=== PATIENT | female | born 1970 | race Asian ===

== ENCOUNTER 2023-07-07 12:34 | Inpatient (IN) | payer MEDICAID, OTHER ==
[~2023-07-07] VITALS: Ht 157.5 cm; Wt 61.7 kg
[2023-07-07 13:15] LABS: BASOPHILS % (AUTO) 1.8 % (0.0-2.0); EOSINOPHILS % (AUTO) 2.1 % (1.0-6.0); HEMATOCRIT 38.7 % (36-46); HEMOGLOBIN 13.4 g/dL (12.0-16.0); LYMPHOCYTES # (AUTO) 2.5 K/uL (1.0-4.8); LYMPHOCYTES % (AUTO) 59.4 % (22.0-44.0); MEAN CORPUSCULAR HEMOGLOBIN 36.5 pg (26.0-34.0); MEAN CORPUSCULAR HGB CONC 34.7 G/dL (31.0-37.0); MEAN CORPUSCULAR VOLUME 105 fL (80-100); MONOCYTES # (AUTO) 0.3 K/uL (0.1-1.0); NEUTROPHILS # (AUTO) 1.2 K/uL (1.8-7.7); NEUTROPHILS % (AUTO) 29.7 % (40.0-70.0); PLATELET COUNT (AUTO) 255 K/uL (150-450); RED BLOOD CELL COUNT(AUTO) 3.68 MIL/uL (4.00-5.20); RED CELL DISTRIBUTION WIDTH 17.1 % (11.5-14.5); WHITE BLOOD COUNT (AUTO) 4.2 K/uL (4.5-11.0)
[2023-07-07 13:25] LABS: ANION GAP 9 mmol/L (8-16); CALCIUM, TOTAL 7.8 mg/dL (8.8-10.5); CARBON DIOXIDE 25 mmol/L (22-29); CHLORIDE 106 mmol/L (98-107); CREATININE 0.59 mg/dL (0.60-1.30); GLOMERULAR FILTR. RATE CALC > 60 mL/min (>60); GLUCOSE,RANDOM 121 mg/dL (70-110); POTASSIUM 3.2 mmol/L (3.5-5.1); SODIUM SERUM 140 mmol/L (136-145); UREA NITROGEN, BLOOD 7 mg/dL (7-18)
[2023-07-07 13:31] LABS: ALANINE AMINOTRANSFERASE 40 U/L (12-78); ALBUMIN 3.8 g/dL (3.4-5.0); ALCOHOL, BLOOD (SERUM) 270 mg/dL (0-10); ALKALINE PHOSPHATASE 78 U/L (46-116); ASPARTATE AMINOTRANSFERASE 60 U/L (15-37); BILIRUBIN,TOTAL 0.4 mg/dL (0.1-1.0); TOTAL PROTEIN, SERUM 7.5 g/dL (6.4-8.2)
[2023-07-07 13:51] LABS: RBC MORPHOLOGY COMMENT ABNORMAL RBC MORPH
[2023-07-07] MEDS ORDERED: ZOLPIDEM TARTRATE 10 MG TABLET PO PRN (14:15)
[2023-07-07] MEDS ORDERED: POTASSIUM CHLORIDE 20 MEQ ER TABLET PO ONE (14:15)
[2023-07-07] MEDS ORDERED: HALOPERIDOL 5 MG TABLET PO PRN (14:15)
[2023-07-07] MEDS ORDERED: LORazepam 2 MG TABLET PO PRN (14:15)
[2023-07-07 14:48] LABS: COVID AG,FIA SOURCE NASAL SWAB
[2023-07-07 14:52] LABS: PH,URINE DRUG SCREEN 5.5 (5.0-8.0)
[2023-07-07 14:59] LABS: AMPHET/METH SCREEN,URINE POSITIVE (NEGATIVE); BARBITURATE SCREEN, URINE NEGATIVE (NEGATIVE); BENZODIAZEPINES SCREEN,URINE NEGATIVE (NEGATIVE); CANNABINOID SCREEN,URINE NEGATIVE (NEGATIVE); COCAINE SCREEN,URINE NEGATIVE (NEGATIVE); METHADONE SCREEN, URINE NEGATIVE (NEGATIVE); OPIATE SCREEN,URINE NEGATIVE (NEGATIVE); PHENCYCLIDINE SCREEN,URINE NEGATIVE (NEGATIVE)
[2023-07-07 15:04] LABS: ALCOHOL, URINE DRUG SCREEN NEGATIVE (NEGATIVE)
[2023-07-07 15:07] LABS: SARS-COV2 (COVID) ANTIGEN,FIA Negative (Negative)
[2023-07-08 00:52] VITALS: BP 144/84; PULSE 87; RESP 18; TEMP 97.8
[2023-07-08] MEDS ORDERED: INFLUENZA VIRUS VACCINE QVS 2023-24 (6MO+)/PF 60 MCG/0.5 ML SYRINGE IM. ONE (02:15)
[2023-07-08] MEDS ORDERED: PETROLATUM,WHITE 28 GM JELLY TP PRN (05:15)
[2023-07-08] MEDS ORDERED: ONDANSETRON HCL 4 MG TABLET PO PRN (05:15)
[2023-07-08] MEDS ORDERED: MAGNESIUM HYDROXIDE SUSPENSION 30 ML UDCUP PO PRN (05:15)
[2023-07-08] MEDS ORDERED: OMEPRAZOLE 20 MG CAPSULE PO PRN (05:15)
[2023-07-08] MEDS ORDERED: BACITRACIN 28 GM OINTMENT TP PRN (05:15)
[2023-07-08] MEDS ORDERED: ACETAMINOPHEN 325 MG TABLET PO PRN (05:15)
[2023-07-08] MEDS ORDERED: DOCUSATE SODIUM 100 MG CAPSULE PO PRN (05:15)
[2023-07-08] MEDS ORDERED: BENZOCAINE/MENTHOL LOZENGE PO PRN (05:15)
[2023-07-08] MEDS ORDERED: CloNIDine HCL 0.1 MG TABLET PO PRN (05:15)
[2023-07-08] MEDS ORDERED: ALBUTEROL SULFATE HFA 90 MCG/PUFF 8 GM INHALER IH PRN (05:15)
[2023-07-08] MEDS ORDERED: LOPERAMIDE HCL 2 MG CAPSULE PO PRN (05:15)
[2023-07-08] MEDS ORDERED: MAG HYDROX/ALUMINUM HYD/SIMETH ES 30 ML SUSPENSION UDCUP PO PRN (05:15)
[2023-07-08] MEDS ORDERED: NICOTINE 21 MG/24 HOUR PATCH TD PRN (06:15)
[2023-07-08 07:40] LABS: ANION GAP 8 mmol/L (8-16); CALCIUM, TOTAL 7.9 mg/dL (8.8-10.5); CARBON DIOXIDE 25 mmol/L (22-29); CHLORIDE 106 mmol/L (98-107); CREATININE 0.53 mg/dL (0.60-1.30); GLOMERULAR FILTR. RATE CALC > 60 mL/min (>60); GLUCOSE,RANDOM 97 mg/dL (70-110); POTASSIUM 3.4 mmol/L (3.5-5.1); SODIUM SERUM 139 mmol/L (136-145); UREA NITROGEN, BLOOD 8 mg/dL (7-18)
[2023-07-08 08:51] LABS: APPEARANCE,URINE CLEAR (CLEAR); BILIRUBIN,URINE NEGATIVE (NEGATIVE); COLOR,URINE LIGHT YELLOW (YELLOW); GLUCOSE, URINE (UA) NEGATIVE (NEGATIVE); KETONES,URINE NEGATIVE (NEGATIVE); LEUKOCYTE ESTERASE ,URINE NEGATIVE (NEGATIVE); NITRATE,URINE NEGATIVE (NEGATIVE); OCCULT BLOOD,URINE NEGATIVE (NEGATIVE); PROTEIN,URINE NEGATIVE (NEGATIVE); SPECIFIC GRAVITIY, URINE 1.021 (1.003-1.030); UROBILINOGEN,URINE <=1.0 mg/dL (<=1.0)
[2023-07-08 10:13] VITALS: BP 147/85; PULSE 66; RESP 18; TEMP 97
[2023-07-08 22:19] VITALS: RESP 18
[2023-07-09 08:53] VITALS: BP 139/83; PULSE 62; RESP 18; TEMP 96.3
[2023-07-09 11:19] VITALS: BP 139/83; PULSE 62; RESP 17; TEMP 96.2
[2023-07-09] MEDS: DIVALPROEX SODIUM 500 MG DR TABLET PO SCH ×2 (11:19→17:00)
[2023-07-09] MEDS: IBUPROFEN 600 MG TABLET PO PRN ×2 (11:19→17:58)
[2023-07-09 12:19] VITALS: BP 118/79; PULSE 76; RESP 17; TEMP 97.9
[2023-07-09 17:58] VITALS: BP 141/81; PULSE 68; RESP 17; TEMP 97.6
[2023-07-09 18:58] VITALS: BP 116/76; PULSE 82; RESP 17; TEMP 98
[2023-07-09 23:10] VITALS: BP 129/78; PULSE 69; RESP 18; TEMP 97.6
[2023-07-10 09:02] VITALS: BP 132/77; PULSE 63; RESP 18; TEMP 97.6
[2023-07-10] MEDS: DIVALPROEX SODIUM 500 MG DR TABLET PO SCH ×2 (09:03→16:29)
[2023-07-10 21:13] VITALS: RESP 18
[2023-07-11 08:00] VITALS: BP 122/68; PULSE 59; RESP 16; TEMP 98.6
[2023-07-11 08:50] VITALS: BP 125/72; PULSE 64; RESP 18
[2023-07-11 09:09] VITALS: BP 122/68; PULSE 59; RESP 18; TEMP 98.6
[2023-07-11 09:50] VITALS: RESP 18
[2023-07-11] MEDS: DIVALPROEX SODIUM 500 MG DR TABLET PO SCH ×2 (09:51→17:31)
[2023-07-11 21:12] VITALS: BP 109/65; PULSE 75; RESP 17; TEMP 98.1
[2023-07-11 21:19] VITALS: BP 109/75; PULSE 75; RESP 17; TEMP 98.1
[2023-07-12 09:37] VITALS: BP 129/73; PULSE 60; RESP 18; TEMP 97.4
[2023-07-12] MEDS: DIVALPROEX SODIUM 500 MG DR TABLET PO SCH (09:52)
[2023-07-12] MEDS ORDERED: DIVA-112 PO (13:03)
== END 2023-07-12 16:05 | disposition home or self-care (01) | DRG 754 ==
LOC: EMS 12:34 → ICUN 14:19 → 3EI 22:28
PROVIDERS: ADMIT Psychiatry & Neurology Psychiatry; ATTEND Psychiatry & Neurology Psychiatry
DX: F32.9 Major depressive disorder, single episode, unspecified (principal); R45.851 Suicidal ideations; F29 Unspecified psychosis not due to a substance or known physiological condition; K59.00 Constipation, unspecified; F41.9 Anxiety disorder, unspecified; G47.00 Insomnia, unspecified; F15.10 Other stimulant abuse, uncomplicated; F10.229 Alcohol dependence with intoxication, unspecified; Z20.822 Contact with and (suspected) exposure to COVID-19
CPT/HCPCS: 80048; 80053; 80307; 81003; 84703; 85025; 99285; G0480

== ENCOUNTER 2024-02-02 10:19 | Inpatient (IN) | payer MEDICAID, OTHER ==
[~2024-02-02] VITALS: Ht 160 cm; Wt 60.8 kg
[~2024-02-02 10:19] MED LIST: DIVA-112 PO
[2024-02-02 12:32] LABS: COVID AG,FIA SOURCE NASAL SWAB
[2024-02-02 12:52] LABS: SARS-COV2 (COVID) ANTIGEN,FIA Negative (Negative)
[2024-02-02 13:50] LABS: PH,URINE DRUG SCREEN 6.5 (5.0-8.0)
[2024-02-02 14:02] LABS: ALCOHOL, URINE DRUG SCREEN NEGATIVE (NEGATIVE); AMPHET/METH SCREEN,URINE POSITIVE (NEGATIVE); BARBITURATE SCREEN, URINE NEGATIVE (NEGATIVE); BENZODIAZEPINES SCREEN,URINE NEGATIVE (NEGATIVE); CANNABINOID SCREEN,URINE NEGATIVE (NEGATIVE); COCAINE SCREEN,URINE NEGATIVE (NEGATIVE); METHADONE SCREEN, URINE NEGATIVE (NEGATIVE); OPIATE SCREEN,URINE NEGATIVE (NEGATIVE); PHENCYCLIDINE SCREEN,URINE NEGATIVE (NEGATIVE)
[2024-02-02] MEDS ORDERED: HALOPERIDOL 5 MG TABLET PO PRN (14:30)
[2024-02-02] MEDS ORDERED: LORazepam 2 MG TABLET PO PRN (14:30)
[2024-02-02] MEDS ORDERED: ZOLPIDEM TARTRATE 10 MG TABLET PO PRN (14:30)
[2024-02-02] MEDS ORDERED: MAGNESIUM HYDROXIDE SUSPENSION 30 ML UDCUP PO PRN (17:15)
[2024-02-02] MEDS ORDERED: DOCUSATE SODIUM 100 MG CAPSULE PO PRN (17:15)
[2024-02-02] MEDS ORDERED: PETROLATUM,WHITE 28 GM JELLY TP PRN (17:15)
[2024-02-02] MEDS ORDERED: LOPERAMIDE HCL 2 MG CAPSULE PO PRN (17:15)
[2024-02-02] MEDS ORDERED: CloNIDine HCL 0.1 MG TABLET PO PRN (17:15)
[2024-02-02] MEDS ORDERED: OMEPRAZOLE 20 MG CAPSULE PO PRN (17:15)
[2024-02-02] MEDS ORDERED: ALBUTEROL SULFATE HFA 90 MCG/PUFF 8 GM INHALER IH PRN (17:15)
[2024-02-02] MEDS ORDERED: BACITRACIN 28 GM OINTMENT TP PRN (17:15)
[2024-02-02] MEDS ORDERED: ONDANSETRON HCL 4 MG TABLET PO PRN (17:15)
[2024-02-02] MEDS ORDERED: BENZOCAINE/MENTHOL LOZENGE PO PRN (17:15)
[2024-02-02] MEDS ORDERED: MAG HYDROX/ALUMINUM HYD/SIMETH ES 30 ML SUSPENSION UDCUP PO PRN (17:15)
[2024-02-02 17:57] VITALS: BP 134/76; PULSE 96; RESP 18; TEMP 98.4; O2SAT 95
[2024-02-02] MEDS: IBUPROFEN 600 MG TABLET PO PRN (20:03)
[2024-02-02 20:07] VITALS: RESP 17
[2024-02-02 21:03] VITALS: RESP 15
[2024-02-03] MEDS: ACETAMINOPHEN 325 MG TABLET PO PRN (00:52)
[2024-02-03 08:26] LABS: BASOPHILS % (AUTO) 0.6 % (0.0-2.0); EOSINOPHILS % (AUTO) 2.2 % (1.0-6.0); HEMATOCRIT 38.7 % (36-46); HEMOGLOBIN 12.9 g/dL (12.0-16.0); LYMPHOCYTES # (AUTO) 2.2 K/uL (1.0-4.8); LYMPHOCYTES % (AUTO) 22.7 % (22.0-44.0); MEAN CORPUSCULAR HEMOGLOBIN 30.3 pg (26.0-34.0); MEAN CORPUSCULAR HGB CONC 33.4 G/dL (31.0-37.0); MEAN CORPUSCULAR VOLUME 91 fL (80-100); MONOCYTES # (AUTO) 0.5 K/uL (0.1-1.0); MONOCYTES % (AUTO) 5.3 % (2.0-9.0); NEUTROPHILS # (AUTO) 6.8 K/uL (1.8-7.7); NEUTROPHILS % (AUTO) 69.2 % (40.0-70.0); PLATELET COUNT (AUTO) 253 K/uL (150-450); RED BLOOD CELL COUNT(AUTO) 4.27 MIL/uL (4.00-5.20); RED CELL DISTRIBUTION WIDTH 15.5 % (11.5-14.5); WHITE BLOOD COUNT (AUTO) 9.9 K/uL (4.5-11.0)
[2024-02-03 08:30] VITALS: BP 134/69; PULSE 74; RESP 17; TEMP 97.7; O2SAT 98
[2024-02-03 09:02] LABS: ALANINE AMINOTRANSFERASE 18 U/L (12-78); ALBUMIN 3.1 g/dL (3.4-5.0); ALKALINE PHOSPHATASE 72 U/L (46-116); ANION GAP 10 mmol/L (8-16); ASPARTATE AMINOTRANSFERASE 12 U/L (15-37); BILIRUBIN,TOTAL 0.5 mg/dL (0.1-1.0); CALCIUM, TOTAL 8.4 mg/dL (8.8-10.5); CARBON DIOXIDE 26 mmol/L (22-29); CHLORIDE 103 mmol/L (98-107); CHOL/HDL RATIO 4.4 (3.9-5.7); CHOLESTEROL 229 mg/dL (131-200); CREATININE 0.62 mg/dL (0.60-1.30); FREE T4 (FREE THYROXINE) 0.76 ng/dL (0.76-1.46); GLOMERULAR FILTR. RATE CALC > 60 mL/min (>60); GLUCOSE,RANDOM 116 mg/dL (70-110); HDL CHOLESTEROL 52 mg/dL (40-60); LDL CHOL (CALC.) 108 mg/dL (0-130); POTASSIUM 3.3 mmol/L (3.5-5.1); SODIUM SERUM 139 mmol/L (136-145); T4 (THYROXINE) 7.4 mcg/dL (4.7-13.3); THYROID STIMULATING HORMONE 2.17 uIU/mL (0.36-3.74); TOTAL PROTEIN, SERUM 6.7 g/dL (6.4-8.2); TRIGLYCERIDES 345 mg/dL (15-150); UREA NITROGEN, BLOOD 13 mg/dL (7-18)
[2024-02-03 13:00] VITALS: RESP 18; O2SAT 98
[2024-02-03 14:00] VITALS: RESP 17; O2SAT 98
[2024-02-03] MEDS ORDERED: CHOL100062 PO (15:11)
[2024-02-03] MEDS ORDERED: CYAN-53 PO (15:11)
[2024-02-03] MEDS ORDERED: THIA100T92 PO (15:11)
[2024-02-03] MEDS: DIVALPROEX SODIUM 500 MG DR TABLET PO SCH (16:50)
[2024-02-03] MEDS: OLANZapine 5 MG TABLET PO SCH (20:15)
[2024-02-03 20:17] VITALS: BP 133/74; PULSE 87; RESP 18; TEMP 97.8
[2024-02-03 20:42] VITALS: BP 143/77; PULSE 73; RESP 16; TEMP 97.6; O2SAT 98
[2024-02-03] MEDS: POTASSIUM CHLORIDE 20 MEQ ER TABLET PO ONE (21:56)
[2024-02-04 08:39] VITALS: BP 129/73; PULSE 78; RESP 18; TEMP 97.7; O2SAT 96
[2024-02-04 20:45] VITALS: BP 138/80; PULSE 83; RESP 18; TEMP 98.3; O2SAT 99
[2024-02-05 07:06] LABS: HEPATITIS C AB (EIA) Non Reactive (Non Reactive)
[2024-02-05 08:39] VITALS: BP 112/76; PULSE 76; RESP 18; TEMP 97; O2SAT 96
[2024-02-05] MEDS ORDERED: OLAN5TAB52 PO (16:19)
[2024-02-05 20:38] VITALS: BP 140/74; PULSE 65; RESP 18; TEMP 96.6; O2SAT 93
[2024-02-06 09:20] VITALS: BP 122/73; PULSE 72; RESP 18; TEMP 97.4; O2SAT 98
== END 2024-02-06 17:17 | disposition home or self-care (01) | DRG 754 ==
LOC: EMS 10:19 → B2S 13:56
PROVIDERS: ADMIT Psychiatry & Neurology Psychiatry; ATTEND Psychiatry & Neurology Psychiatry
DX: F32.9 Major depressive disorder, single episode, unspecified (principal); R45.851 Suicidal ideations; Z20.822 Contact with and (suspected) exposure to COVID-19; K59.00 Constipation, unspecified; F41.9 Anxiety disorder, unspecified; G47.00 Insomnia, unspecified; F10.929 Alcohol use, unspecified with intoxication, unspecified; Y90.9 Presence of alcohol in blood, level not specified; F15.90 Other stimulant use, unspecified, uncomplicated
CPT/HCPCS: 80053; 80061; 80307; 84132; 84436; 84439; 84443; 84703; 85025; 86592; 86803; 87340